=== PATIENT | male | born 1945 | race Caucasian/White ===

== ENCOUNTER → 2017-02-14 | Outpatient (CLI) | payer OTHER ==
--- NOTE | 2017-02-14 13:02 | DI ---
Indication: ITS.REASON: DIAGNOSTIC TESTING Procedure: CHEST, PA LATERAL: Encounter: Initial Comparison: None Technique: PA and lateral radiographs of the chest were obtained. Findings: Lungs and airways: Normal lung volumes. Left basilar opacities have appearance most suggestive of chronic fibrosis/scarring. No other focal/confluent airspace consolidation. Normal pulmonary vasculature. Pleura: No pleural effusion or pneumothorax. Heart and mediastinum: Mild cardiomegaly. Postoperative changes of CABG. Osseous structures and soft tissues: No acute osseous abnormality is seen. Postoperative changes of bilateral shoulder arthroplasty and median sternotomy. Degenerative disc disease of the thoracic spine. Impression: No acute cardiopulmonary process. .
--- NOTE | 2017-02-16 11:05 | ECHOF ---
ECHOCARDIOGRAM REPORT DATE OF PROCEDURE February 14, 2017 This is a two-dimensional echo with spectral Doppler, color-flow and M-mode. Left atrial dimension is normal. Left ventricle end-diastolic dimension is normal. Left ventricle wall thickness is normal. LV systolic function is normal with ejection fraction of 55%. Right atrium is normal. Right ventricle is normal. Aortic root dimension is normal. Mitral annulus is calcified. Mitral valve leaflets are sclerotic with no stenosis or insufficiency. Aortic valve shows fibrocalcific changes with mild restriction on opening motion. Transaortic velocities are increased with a peak velocity of 2.2 with a peak gradient of 19 and mean gradient of 10. Aortic valve area is calculated at 1.55 cm2. Mild aortic insufficiency is present. Tricuspid valve shows mild tricuspid regurgitation with normal estimated pulmonary artery systolic pressure of 30. There is no pericardial effusion. IMPRESSION 1. Normal LV systolic function with ejection fraction of 55%. 2. Mitral annulus calcification with mitral sclerosis. 3. Very mild aortic stenosis with a valve area of 1.55 cm2. 4. Mild tricuspid regurgitation with normal estimated pulmonary artery systolic pressure of 30. MTDD
== END ==
LOC: IMA 12:03
DX: Z02.89 Encounter for other administrative examinations (principal)
CPT/HCPCS: 93306